=== PATIENT | female | born 1930 | race Caucasian/White ===

== ENCOUNTER 2020-12-08 14:05 | Emergency (ER) | payer MEDICARE ==
[2020-12-08 16:52] LABS: HEMOGLOBIN 11.7 gm/dl (12.3-15.3); RED BLOOD COUNT 3.27 M/UL (4.00-5.10); WHITE BLOOD COUNT 14.5 K/UL (4.5-11.0)
[2020-12-08 17:19] LABS: BUN/CREATININE RATIO 46 (0-10)
== END 2020-12-08 23:55 | disposition short-term general hospital (02) ==
LOC: ER1 14:05
PROVIDERS: Student in an Organized Health Care Education/Training Program
DX: S42.201A Unspecified fracture of upper end of right humerus, initial encounter for closed fracture (principal); S72.141A Displaced intertrochanteric fracture of right femur, initial encounter for closed fracture; I10 Essential (primary) hypertension; W19.XXXA Unspecified fall, initial encounter; Z20.822 Contact with and (suspected) exposure to COVID-19
CPT/HCPCS: 0240U; 70450; 71045; 72125; 72192; 73030; 73060; 73502; 73552; 80053; 85025; 96374; 96375; 99285; J2270; J2405